=== PATIENT | male | born 1965 ===

== ENCOUNTER 2017-05-08 22:54 | Emergency (ER) | payer BC ==
[2017-05-08 23:05] VITALS: O2SAT 95
[2017-05-09] MEDS ORDERED: Albuterol-Ipratrop 3 mg / 0.5 (3 ml) UD IH STA (00:03)
--- NOTE | 2017-05-09 00:05 | ED PDOC ---
HPI: SOB/CHF/COPD Time Seen by Provider: 05/08/17 23:46 Chief Complaint (Nursing): Shortness Of Breath Chief Complaint (Provider): chest tightness, wheezing History Per: Patient History/Exam Limitations: no limitations Onset/Duration Of Symptoms: Days (3) Current Symptoms Are (Timing): Still Present Additional History Per: Patient Additional Complaint(s): 51 y/o male history of asthma presents with shortness of breath and chest tightness x 3 days. Patient states symptoms typical of previous asthma attack, states last one years ago. Patient reports no relief with inhaler. Denies fever, congestion, palpitations, abdominal pain, leg pain/swelling, recent travel. Past Medical History Reviewed: Historical Data, Nursing Documentation, Vital Signs Vital Signs: Last Vital Signs Temp 97.8 F 05/08/17 23:03 Pulse 83 05/08/17 23:03 Resp 18 05/09/17 00:15 BP 148/94 H 05/08/17 23:03 Pulse Ox 95 05/09/17 00:15 - Medical History PMH: No Chronic Diseases - Surgical History Surgical History: No Surg Hx - Family History Family History: States: No Known Family Hx - Living Arrangements Living Arrangements: With Family - Home Medications Home Medications: Ambulatory Orders Medication Instructions Recorded Albuterol HFA [Ventolin HFA 90 1 - 2 puff IH Q4 PRN #1 inh 05/09/17 mcg/actuation (8 g)] predniSONE [Prednisone] 60 mg PO DAILY #12 tab 05/09/17 - Allergies Allergies/Adverse Reactions: Allergies Allergy/AdvReac Type Severity Reaction Status Date / Time No Known Allergies Allergy Verified 05/09/17 00:03 Review of Systems ROS Statement: Except As Marked, All Systems Reviewed And Found Negative Respiratory: Positive for: Cough, Shortness of Breath, Wheezing Physical Exam - Reviewed Nursing Documentation Reviewed: Yes Vital Signs Reviewed: Yes - Physical Exam Appears: Positive for: Well, Non-toxic, No Acute Distress Head Exam: Positive for: ATRAUMATIC, NORMAL INSPECTION, NORMOCEPHALIC Skin: Positive for: Normal Color Eye Exam: Positive for: Normal appearance ENT: Positive for: Normal ENT Inspection Cardiovascular/Chest: Positive for: Regular Rate, Rhythm Respiratory: Positive for: Wheezing (diffuse expiratory) Gastrointestinal/Abdominal: Positive for: Normal Exam Back: Positive for: Normal Inspection Extremity: Positive for: Normal ROM Neurologic/Psych: Positive for: Alert, Oriented - ECG ECG: Positive for: Viewed By Me ECG Rhythm: Positive for: Sinus Rhythm O2 Sat by Pulse Oximetry: 95 - Radiology X-Ray: Viewed By Me X-Ray Interpretation: No Acute Disease - Progress ED Course And Treament: duoneb x 2, solumedrol IV, chest xray On re-eval, patient states he is feeling much better. Lungs CTA on re-eval Patient educated on findings, discharged with rx Prednisone, ALbuterol HFA. Patient has follow up appointment with PMD for later today, advised to keep as scheduled. Return precautions given Disposition - Clinical Impression Clinical Impression: Asthma exacerbation - Patient ED Disposition Is Patient to be Admitted: No Counseled Patient/Family Regarding: Studies Performed, Diagnosis, Need For Followup, Rx Given - Disposition Referrals: Mark Marinelli, CANDIDO, KIER OPERATOR [Primary Care Provider] - Disposition: Routine/Home Disposition Time: 01:52 Condition: IMPROVED Prescriptions: Albuterol HFA [Ventolin HFA 90 mcg/actuation (8 g)] 1 - 2 puff IH Q4 PRN #1 inh PRN Reason: Wheezing predniSONE [Prednisone] 60 mg PO DAILY #12 tab Forms: [employer] (Faroese)
[2017-05-09] MEDS ORDERED: Albuterol-Ipratrop 3 mg / 0.5 (3 ml) UD INH STA (00:11)
[2017-05-09] MEDS ORDERED: Albuterol-Ipratrop 3 mg / 0.5 (3 ml) UD ONE (00:12)
[2017-05-09 01:55] VITALS: BP 132/76; PULSE 89; RESP 19; TEMP 98.3
--- NOTE | 2017-05-09 09:24 | RAD ---
HISTORY: COMPARISON: 07/21/2009. TECHNIQUE: Chest PA and lateral FINDINGS: LINES AND TUBES: None. LUNG AND PLEURA: The lungs are hyperinflated and there is peribronchial thickening with chronic changes in both lungs. No focal consolidation. HEART AND MEDIASTINUM: The heart is not enlarged. The hilar and mediastinal contours are within normal limits. SKELETAL STRUCTURES: The bony structures are within normal limits for the patient's age. VISUALIZED UPPER ABDOMEN: Normal. OTHER FINDINGS: None. IMPRESSION: No active pulmonary disease. COPD.
--- NOTE | 2017-05-09 23:41 | CARD ---
APPROVED REPORT EKG Measurement Heart [id number] <Conclusion> Normal sinus rhythm with sinus arrhythmia Normal ECG
== END 2017-05-09 02:00 | disposition home or self-care (01) ==
LOC: H.ER 22:54
DX: J45.901 Unspecified asthma with (acute) exacerbation (principal)
CPT/HCPCS: 71046; 93005; 94640; 96374; 99284; J2930